=== PATIENT | female | born 1975 | race Caucasian/White ===

== ENCOUNTER 2017-04-24 07:20 | Day surgery (SDC) | payer BC ==
[~2017-04-24] VITALS: Ht 167.6 cm; Wt 85.0 kg
[~2017-04-24 07:20] MED LIST: MVI
[2017-04-24 07:41] VITALS: BP 133/92
[2017-04-24 13:25] VITALS: BP 124/84
[2017-04-24 15:00] VITALS: BP 124/84
== END 2017-04-24 15:10 | disposition home or self-care (01) ==
LOC: SDC 07:20
DX: N92.0 Excessive and frequent menstruation with regular cycle (principal); Z30.2 Encounter for sterilization; Z83.3 Family history of diabetes mellitus; Z82.49 Family history of ischemic heart disease and other diseases of the circulatory system; Z84.1 Family history of disorders of kidney and ureter; Z83.49 Family history of other endocrine, nutritional and metabolic diseases; Z88.0 Allergy status to penicillin; Z88.1 Allergy status to other antibiotic agents
CPT/HCPCS: 87086; 88305; J0131; J0330; J1100; J1170; J1580; J1885; J2250; J2405; J7050; S0020